=== PATIENT | male | born 1955 | race Caucasian/White ===

== ENCOUNTER 2018-12-24 03:25 | Emergency (ER) | payer OTHER ==
[~2018-12-24] VITALS: Ht 195.6 cm; Wt 107.0 kg
--- NOTE | 2018-12-24 03:45 | NUR ---
RANDY. REPORT RECEIVED FROM EMS. PT HERE FOR COPD EXACERBATION. SPO2 91% WITH RA AT THIS TIME. ALL MONITORS IN PLACE. CALL LIGHT WITHIN REACH. EKG DONE AT BEDSIDE BY EMT. PA AT BEDSIDE TO ASSESS. POSSIBLE BED BUG ON ABD AREA. PT STATES PT USED TO HAVE BED BUG IN APARTMENT. PT'S AOX4. RESPS EVEN AND UNLABORED. AWAITING ORDERS AT THIS TIME.
--- NOTE | 2018-12-24 03:55 | NUR ---
PT MEDICATED PER EMAR. PT TOLERATED WELL. PT'S AOX4. RESPS EVEN AND UNLABORED.
[2018-12-24] MEDS ORDERED: ALBUTEROL SULFATE 2.5 MG/3 ML NPPB ONE (04:00)
[2018-12-24] MEDS ORDERED: PLEASE ENTER ALLERGIES MC SCH (04:00)
--- NOTE | 2018-12-24 04:36 | NUR ---
RT AT BEDSIDE AT THIS TIME.
[2018-12-24 04:55] LABS: BASOPHILS # (AUTO) 0.05 x10^3/uL (0-0.1); BASOPHILS % (AUTO) 1 % (0-1); EOSINOPHILS % (AUTO) 3 % (1-7); LYMPHOCYTES # (AUTO) 1.61 x10^3/uL (1-3.4); LYMPHOCYTES % (AUTO) 26 % (22-44); MD NO; MEAN CORPUSCULAR HEMOGLOBIN 31.1 pg (27.5-34.5); MEAN CORPUSCULAR HGB CONC 32.4 g/dL (33.2-36.2); MEAN CORPUSCULAR VOLUME 95.9 fL (81-97); MEAN PLATELET VOLUME 7.4 fL (7.4-10.4); MONOCYTES # (AUTO) 0.51 x10^3/uL (0.2-0.8); MONOCYTES % (AUTO) 8 % (2-9); NEUTROPHILS # (AUTO) 3.79 x10^3/uL (1.8-6.8); NEUTROPHILS % (AUTO) 62 % (42-75); PLATELET COUNT 224 x10^3/uL (130-400); RED BLOOD COUNT 4.88 x10^6/uL (4.38-5.82); RED CELL DISTRIBUTION WIDTH 14.2 % (9.4-14.8)
[2018-12-24 05:06] LABS: ALBUMIN 3.4 g/dL (3.4-5.0); ANION GAP 6 mmol/L (5-15); CALCIUM 8.2 mg/dL (8.5-10.1); CHLORIDE 114 mmol/L (98-107); CREATININE 0.94 mg/dL (0.7-1.3)
--- NOTE | 2018-12-24 05:14 | NUR ---
PT SLEEPING IN [facility]. RESPS EVEN AND UNLABORED. ALL MONITORS IN PLACE. CALL LIGHT WITHIN REACH. AWAITING DISPO NOW.
[2018-12-24] MEDS ORDERED: ALBU0.63 NEB (05:46)
[2018-12-24 06:07] VITALS: BP 148/70
--- NOTE | 2018-12-24 06:14 | NUR ---
PT GIVEN DC INSTRUCTIONS AND SCRIPTS. PT EDUCATED REGARDING DC MEDICATIONS. PT'S AOX4. RESPS EVEN AND UNLABORED. NO ACUTE DISTRESS AT DC.
== END 2018-12-24 06:15 | disposition home or self-care (01) ==
LOC: EDBD 03:25 → ED 05:28
DX: J44.1 Chronic obstructive pulmonary disease with (acute) exacerbation (principal)
CPT/HCPCS: 36415; 71045; 80048; 82040; 85025; 93005; 94640; 99284; J7512; J7613